=== PATIENT | female | born 1935 | race Asian ===

== ENCOUNTER 2019-01-29 16:20 | Emergency (ER) | payer BC ==
[~2019-01-29] VITALS: Ht 162.6 cm; Wt 50.0 kg
[2019-01-29] MEDS ORDERED: ACETAMINOPHEN 325MG TABLET PO STA (16:53)
[2019-01-29 17:31] LABS: CHLORIDE 110 mEq/L (98-107)
[2019-01-29 17:34] LABS: INR 1.1; PARTIAL THROMBOPLASTIN TIME 27.2 sec (23.4-31.0); PROTHROMBIN TIME 11.5 sec (9.6-11.0)
[2019-01-29 17:36] LABS: BASOPHILS % 0.3 % (0.0-2.0); HEMATOCRIT. 34.5 % (36.0-48.0); HEMOGLOBIN. 11.7 g/dL (12.0-16.0); LYMPHOCYTES % 11.4 % (20.0-50.0); MEAN CORPUSCULAR HEMOGLOBIN 38.8 pg (28.0-32.0); MEAN CORPUSCULAR VOLUME 114.7 fL (81.0-99.0); MEAN PLATELET VOLUME 9.4 fl (7.4-10.4); MONOCYTES % 3.4 % (2.0-8.0); NEUTROPHILS % 84.9 % (40.0-76.0); PLATELET 216 x1000/uL (130-400); RED BLOOD CELL COUNT 3.01 mill/uL (4.2-5.4); RED CELL DISTRIBUTION WIDTH 14.8 % (11.6-14.6)
[2019-01-29 18:36] VITALS: BP 133/56
[2019-01-29 18:54] LABS: PLATELET ESTIMATE NORMAL
== END 2019-01-29 18:57 | disposition home or self-care (01) ==
LOC: ER 16:20
DX: R51 Headache (principal); R53.1 Weakness; I48.91 Unspecified atrial fibrillation; M54.9 Dorsalgia, unspecified; V49.88XA Car occupant (driver) (passenger) injured in other specified transport accidents, initial encounter; Y93.89 Activity, other specified; Y92.89 Other specified places as the place of occurrence of the external cause; Y99.8 Other external cause status
CPT/HCPCS: 36415; 99283